=== PATIENT | male | born 1985 | race Caucasian/White ===

== ENCOUNTER 2017-06-23 11:54 | Emergency (ER) | payer OTHER ==
[~2017-06-23] VITALS: Ht 190.5 cm; Wt 76.8 kg
[~2017-06-23 11:54] MED LIST: PREDNISONE10 M1 PO; PREDNISONE20 MG PO; PROAIR HFA8.5 GM IH; VENTOLIN HFA18 GM IH
[2017-06-23] MEDS ORDERED: PEN-VEE K,VEET500 MG PO (13:14)
[2017-06-23] MEDS ORDERED: NAPROSYN500 MG PO (13:14)
[2017-06-23 13:25] VITALS: BP 132/85
== END 2017-06-23 13:27 | disposition home or self-care (01) ==
LOC: EME 11:54
DX: K02.9 Dental caries, unspecified (principal); R22.0 Localized swelling, mass and lump, head
CPT/HCPCS: 99281; 99283

== ENCOUNTER 2017-09-16 14:16 | Emergency (ER) | payer OTHER ==
[~2017-09-16] VITALS: Ht 190.5 cm; Wt 70.5 kg
[~2017-09-16 14:16] MED LIST changes: +NAPROSYN500 MG PO; +PEN-VEE K,VEET500 MG PO
[2017-09-16 15:06] LABS: HEMATOCRIT 45.8 % (38.0-50.0); HEMOGLOBIN 16.6 G/DL (12.5-16.6); MCH 31.4 PG (29.0-34.0); MCHC 36.2 G/DL (30.0-36.0); MCV 86.6 FL (86-99); PLATELET COUNT 243 K/uL (156-360); RBC DIS.WIDTH-CV 12.8 % (11.8-14.6); RBC DIS.WIDTH-SD 40.5 % (39-53); RED BLOOD COUNT 5.29 M/uL (4.00-5.50)
[2017-09-16 15:15] LABS: ALBUMIN 4.6 g/dL (3.2-4.8); CHLORIDE 100 mEq/L (99-109); POTASSIUM 3.8 mEq/L (3.7-5.4); SODIUM 141 mEq/L (136-147)
[2017-09-16 15:18] LABS: GLUCOSE 104 mg/dL (70-99); TOTAL PROTEIN 7.3 g/dL (6.4-8.3)
[2017-09-16 15:20] LABS: TOTAL BILIRUBIN 0.9 mg/dL (0.0-1.0)
[2017-09-16 15:21] LABS: ALKALINE PHOSPHATASE 81 IU/L (3-129); SERUM ETHYL ALCOHOL 262 mg/dL
[2017-09-16 15:22] LABS: GFR ESTIMATE (CALCULATED) > 59 mL/min/ (58.99-99999)
[2017-09-16 15:23] LABS: AST (GOT) 63 IU/L (2-34); UREA NITROGEN (BUN) 11 mg/dL (9-23)
[2017-09-16 15:24] LABS: ALT (GPT) 58 IU/L (3-49)
[2017-09-16 15:27] LABS: TROP-I INTERPRETATION NEGATIVE; TROPONIN-I < 0.01 ng/mL (0.0-0.30)
[2017-09-16 17:37] LABS: THC CANNABINOIDS PRESUMPTIVE POSITIVE (50 ng/mL)
[2017-09-16 17:38] LABS: AMPHETAMINE NEGATIVE (500 ng/mL); BARBITURATES NEGATIVE (200 ng/mL); BENZODIAZEPINES NEGATIVE (150 ng/mL); BUPRENORPHINE NEGATIVE (10 ng/mL); COCAINE NEGATIVE (150 ng/mL); METHADONE NEGATIVE (200 ng/mL); METHAMPHETAMINE NEGATIVE (500 ng/mL); OPIATES (MORPHINE) NEGATIVE (100 ng/mL); OXYCODONE NEGATIVE (100 ng/mL); PHENCYCLIDINE NEGATIVE (25 ng/mL); PROPOXYPHENE NEGATIVE (300 ng/mL); TRICYCLIC ANTIDEPRESSANTS NEGATIVE (300 ng/mL)
[2017-09-16] MEDS ORDERED: ZOFRAN ODT4 MG PO (22:26)
[2017-09-16] MEDS ORDERED: THIAMINE HCL100 MG PO (22:26)
[2017-09-16] MEDS ORDERED: PROVENTIL HFA6.7 GM IH (22:26)
[2017-09-16] MEDS ORDERED: LIBRIUM25 MG PO (22:26)
[2017-09-16 22:36] VITALS: BP 151/106
== END 2017-09-16 22:38 | disposition home or self-care (01) ==
LOC: EME 14:16
PROVIDERS: Nurse Practitioner Family
DX: F10.129 Alcohol abuse with intoxication, unspecified (principal); F43.21 Adjustment disorder with depressed mood; J45.909 Unspecified asthma, uncomplicated; F17.200 Nicotine dependence, unspecified, uncomplicated; Z71.6 Tobacco abuse counseling; Y90.8 Blood alcohol level of 240 mg/100 ml or more; F12.90 Cannabis use, unspecified, uncomplicated; F41.9 Anxiety disorder, unspecified; F32.9 Major depressive disorder, single episode, unspecified
CPT/HCPCS: 71046; 80053; 84484; 84999; 85027; 90839; 93005; 94640; 99281; 99285; G0480; Q0177